=== PATIENT | male | born 1955 | race Caucasian/White ===

== ENCOUNTER → 2016-05-09 | Outpatient (CLI) | payer OTHER ==
[~2016-05-09] MED LIST: CIPR-280 PO; HYOS0.124 SL; LOPE-150 PO; ONDA-55 PO; SIME125C PO
== END ==
LOC: IMA 09:08
PROVIDERS: ATTEND Family Medicine
DX: M17.12 Unilateral primary osteoarthritis, left knee (principal)

== ENCOUNTER → 2016-07-19 | Outpatient (CLI) | payer OTHER | LOC: IMA.MDS 12:16 | PROVIDERS: ATTEND Family Medicine | DX: M17.0 Bilateral primary osteoarthritis of knee (principal) ==

== ENCOUNTER 2017-10-17 09:28 | Observation (INO) ==
[2017-10-17] MEDS ORDERED: SALINE FLUSH 10ml SYRINGE IVF PRN (10:09)
--- NOTE | 2017-10-17 10:22 | CT Scan Report ---
Indication: fall, mental status change PROCEDURE: CT head/brain wo con: Encounter: Initial Comparison: None Technique: Axial CT images through the head were performed without contrast. Iterative Reconstruction dose reducing technique was utilized. FINDINGS: The ventricles are of normal size, shape, and configuration for the patient's age. There is no evidence of acute intracranial hemorrhage, midline displacement, or mass effect. The CT attenuation of the brain parenchyma is normal within the cerebellum, brain stem, and cerebral hemispheres. The tympanic cavities and mastoid air cells are free of appreciable disease. There are no definite fractures of the skull base, calvarium, or visualized portion of the midface. IMPRESSION: No CT evidence of acute traumatic intracranial injury. .
--- NOTE | 2017-10-17 11:15 | XRay Report ---
INDICATION: ms change PROCEDURE: CHEST 2-VIEWS UPRIGHT (PA & LAT) Encounter: Initial COMPARISON: None FINDINGS: The lungs are clear without evidence of focal abnormal airspace opacity. There is no pleural effusion or pneumothorax. The heart size, mediastinal contours and pulmonary vascularity are within normal limits. There is no significant skeletal abnormality. IMPRESSION: No acute cardiopulmonary disease. .
[2017-10-17 12:40] VITALS: BMI 19.7
--- NOTE | 2017-10-17 13:08 | History & Physical Report ---
History of Present Illness Date: 10/17/17 HPI: Antonino Falcon is a 62 y/o male who was brought to [facility] ED via EMS. Apparently Axel Fowler called PD, concerned about him. Reportedly they heard him groaning inside and after breaking down the door, found him face down on the floor. At that time , EMS was called. Upon arrival he was obtunded and was able to answer questions ever so briefly before closing his eyes again. A detailed letter describing instructions on what he wants done after finding his body. In addition, there were numerous empty [place] bottles (4 empty ones, with 5 bottles either half or fully filled yet) -- these were left over Rx for his , who reportedly a year ago. There were also full Rx bottles of oxycodone, cyclobenzaprine, and trazodone. CBC, CMP, UA were essentially unremarkable. CT head and CXR did not show any acute pathology. UDS was pos for opiates. The hospitalist service was contacted for admission. The patient was seen while still in the ED. He was somnolent but awakened with loud verbal stimulation. Communication was difficult - his words were slurred and extremely difficult to understand. When I asked about his head, he chuckled but I was unable to understand what he said. He denied taking any of his 's medications and denied wanting to take his life. He states that he's had "the crud", referring to cough and congestion. ROS was limited and otherwise unremarkable. Review of Systems ROS unobtainable: due to mental status Past Medical History Medical History: Medical History (Last Updated 10/17/17 @ 15:15 by Estephania Camargo APRN) Anxiety Atrial fibrillation Chronic sinusitis Depression HTN (hypertension) Hyperlipidemia Surgical History: Appendectomy Family History Updates: Per patient: positive for diabetes, possibly heart disease. Per [facility] Records: Mother, Father, & Brother - CAD, HTN, HTN, Hyperlipidemia Family History: As Above - Social History Smoking status: Current every day smoker Packs per day: 1.5 Substance use type: other (states that he used drugs a long time ago) Alcohol intake frequency: does not drink Household members: none (: 06/2015) Current occupation: [employer] Medications Home Medications Medication Instructions Recorded Confirmed Type Escitalopram Oxalate [Lexapro] 20 mg PO DAILY 10/17/17 10/17/17 History Lisinopril [Prinivil] 10 mg PO DAILY 10/17/17 10/17/17 History Allergies Allergy/AdvReac Type Severity Reaction Status Date / Time chlorpheniramine Allergy Unknown Verified 10/17/17 09:52 codeine Allergy Unknown Verified 10/17/17 09:52 phenylephrine Allergy Verified 10/17/17 09:52 Exam Vital Signs: Temperature 96.4 F L 10/17/17 09:35 Pulse Rate 60 10/17/17 12:46 Respiratory Rate 25 H 10/17/17 12:46 Blood Pressure 117/59 10/17/17 12:46 Pulse Oximetry 94 10/17/17 12:46 Height/Weight/BMI: Height 1.85 m Weight 67.9 kg Body Mass Index 19.7 - Constitutional Present: well nourished, well developed, thin - Routine HEENT Exam Head: Absent: atraumatic (abrasions to left frontal scalp) Eye: Present: PERRL. Absent: conjunctival icterus, scleral injection ENT: Present: mucous membranes dry - Routine Neck Exam Present: supple - Routine Respiratory Exam Present: CTA bilaterally - Routine Cardiovascular Exam Present: RRR, S1, S2, bradycardia (HR in the 50s while sleeping, increased to 70s when awake) - Routine Abdominal Exam Present: soft, normoactive bowel sounds, non distended, non tender - Routine Extremities Exam Present: no edema, pulses intact. Absent: calf tenderness Comments: Abrasion to left foot Healing abrasion to left knee - Routine Skin Exam Present: dry, warm Comments: face is flushed skin is very tanned - Routine Neurological Exam Present: alert, CN II-XII intact (grossly intact - no obvious gross deficits), hearing grossly intact. Absent: facial asymmetry, normal speech (slurred, difficult to understand) - Routine Psychiatric Exam Present: unable to assess Results - Labs CBC & Chem 7: 10/17/17 10:22 10/17/17 10:22 Microbiology Results: Microbiology 10/17/17 10:26 Peripheral/Iv Start Blood Culture - Preliminary Culture Initiated - Results Pending 10/17/17 10:22 Peripheral/Iv Start Blood Culture - Preliminary Culture Initiated - Results Pending 10/17/17 10:27 Urine, Voided (Cc/notcc) Urine Culture - Preliminary Culture Initiated - Results Pending Assessment and Plan (1) Suicidal ideation Current visit: Yes Status: Acute Assessment and Plan: Assessment Possible suicide attempt Scalp abrasion Tobacco dependency Based on office notes from Feb, 2016: Depression - previously Rx escitalopram Anxiety A-fib HTN - previously Rx lisinopril 20 mg/HCTZ 25 mg Hyperlipidemia (also was Rx hyoscyamine & ondansetron) Plan Patient was obtunded and a poor historian on admission. He denied PMH or surgeries: Review of office records countered his statement. Placed in the CCU for suicide precautions and close monitoring given that we do not know the content/dose of any ingested substance(s). IVF: LR @ 100 mL/hr. NPO until he can safely protect his airway. RT consulted for tobacco cessation. Dr. Spencer consulted. "Patient will require inpatient psychiatric stabilization once medically stable. Patient cannot leave AMA. If patient attempts to leave, please place court hold and contact psychiatrist hot iron worker." Case discussed with Dr. Conti & Dr. Castillo. I personally examined and assessed the patient. Agree with the above assessment and plan, with the addition of the following: Pt overdosed on opioids as an intentional overdose with suicidal intent. Currently hemodynamically stable. Awakens to command, mumbles in a way that's difficult to understand. Was oriented x 2 for me. Lungs clear. O2 sats normal on RA. Normal respiratory rate. No LE edema. Right pupil slightly more dilated that left, which is 1-2mm in size, also with left mild ptosis. Moves upper and lower extremities symmetrically and 5/5 in strength. Cont IVF, reg diet if passes bedside swallow. Narcan if decreasing respiratory rate, discussed with nurse to monitor closely. ?3rd nerve palsy. Await assessment when more coherent. No other focal deficits to point towards CVA. Gen Castillo MD. DVT Prophylaxis: SCD's Resuscitation Status: Full Code - Physician Narrative Narrative: Date: 10/17/17 Time: 1258 Hospital Course Summary Disclaimer: The visit summary below is not to be considered part of the above Progress Note. Hospital Course: 10/17/17 Patient was obtunded and a poor historian on admission. He denied PMH or surgeries: Review of office records countered his statement. Placed in the CCU for suicide precautions and close monitoring given that we do not know the content/dose of any ingested substance(s). IVF: LR @ 100 mL/hr. NPO until he can safely protect his airway. RT consulted for tobacco cessation. Dr. Spencer consulted. "Patient will require inpatient psychiatric stabilization once medically stable. Patient cannot leave AMA. If patient attempts to leave, please place court hold and contact psychiatrist hot iron worker."
[2017-10-17] MEDS ORDERED: SENNA + DOCUSATE TABLET PO PRN (13:13)
[2017-10-17] MEDS ORDERED: BISACODYL 10 MG SUPPOSITORY RECTALLY PRN (13:13)
[2017-10-17] MEDS ORDERED: ONDANSETRON 4 MG/2 ML INJECTION IVP PRN (13:13)
[2017-10-17] MEDS ORDERED: NICOTINE 21 MG PATCH TD PRN (13:13)
[2017-10-17] MEDS ORDERED: Bisacodyl EC TAB 5 MG TABLET PO PRN (13:13)
[2017-10-17] MEDS: LR 1,000 ML IV SCH ×2 (13:53→23:34)
--- NOTE | 2017-10-17 14:54 | Neuropsychiatric Consult ---
[facility] Date: 10/18/17 Requesting Physician: Estephania Camargo Reason for Consultation: Safety assessment Start Time: 18:00 Stop Time: 18:40 History of Present Illness: Patient is a 62-year-old , male who was brought to [facility] ED by EMS on 10/17/17. Per primary team: "Apparently Bryan called PD, concerned about him. Reportedly they heard him groaning inside and after breaking down the door, found him face down on the floor. At that time, EMS was called. Upon arrival he was obtunded and was able to answer questions ever so briefly before closing his eyes again. A detailed letter describing instructions on what he wants done after finding his body. In addition, there were numerous empty [place] bottles (4 empty ones, with 5 bottles either half or fully filled yet) -- these were left over Rx for his , who reportedly a year ago. There were also full Rx bottles of oxycodone, cyclobenzaprine, and trazodone. CBC, CMP, UA were essentially unremarkable. CT head and CXR did not show any acute pathology. UDS was pos for opiates." On interview, patient is arousable but stuporous and confused. He greets me warmly and shakes my hand, but is oriented to self only. He mumbles his responses and is quite difficult to understand. His answers are mostly illogical given the conversation. He is hyperexcitable throughout the conversation and attempts to get out of his hospital bed, with excessive excitement and pointing about a pine tree out the hospital window. He has since minimized suicide attempt despite the letter described above. [facility] Patient Stated Medical History Dental Problems Yes Cardiac Arrhythmia Yes: Hx of afib Hypertension Yes Other Cardiology Yes: hyper lipidemia Depression Yes Medical History Updates: Denies Surgical History: Denies Family History Updates: Positive for diabetes, possibly heart disease. - Social History Smoking status: Current every day smoker Packs per day: 1.5 Substance use type: other (states that he used drugs a long time ago) Alcohol intake frequency: does not drink Social history: I am not able to obtain further reliable social history from patient at this time. Review of Systems ROS unobtainable: due to mental status Mental Status Exam Vitals: Last Vital Signs Temp 96.4 F L 10/17/17 09:35 Pulse 60 10/17/17 12:46 Resp 25 H 10/17/17 12:46 BP 117/59 10/17/17 12:46 Pulse Ox 94 10/17/17 12:46 Height: 1.85 m Weight: 67.9 kg - Mental Status Exam Muscle Strength/Tone: Weak Dressing: Other (Hospital gown) Grooming: Disheveled Attitude: Uncooperative (due to confusion) Motor Activity: Hyperactive Eye Contact: Fair Speech: Normal Volume: Normal Rhythm: Slurred, Mumbled Sensory: Stupor, Confused Orientation: Disoriented to time, Disoriented to place, Disoriented to situation , Oriented to person Mood: Neutral (has bright affect upon approach, but appears delirious) Rate of Thoughts: Delayed Thought Organization: Confused Associations: Illogical Abstract Reasoning: Impaired, concrete Thought Content: Other (Difficult to assess due to suspected delirium) Perception/Psychotic: Other (May be responding to internal stimuli, not clear) Language: Naming Impaired Fund of Knowledge: Poor fund of knowledge Memory: Poor-recent Suicidal Ideation: Other (s/p suicide attempt by overdose, suicide letter found at scene) Homicidal Ideation: None Insight: Impaired Judgement: Impaired Impulse Control: Poor - Laboratory Result Diagrams: 10/17/17 10:22 10/18/17 04:32 Laboratory Results - last 24 hr 10/17/17 10/17/17 10/17/17 10:20 10:20 10:22 WBC 7.7 RBC 5.01 Hgb 14.7 Hct 44.1 MCV 88.0 MCH 29.3 MCHC 33.3 RDW Std Deviation 43.6 Plt Count 193 MPV 8.8 L Immature Gran % (Auto) Not performed Neut % (Auto) Not performed Lymph % (Auto) Not performed Brooke % (Auto) Not performed Eos % (Auto) Not performed Baso % (Auto) Not performed Neut # (Auto) Not performed Lymph # (Auto) Not performed Brooke # (Auto) Not performed Eos # (Auto) Not performed Baso # (Auto) Not performed Abs Immat Gran (auto) Not performed Neutrophils % (Manual) 81.0 H Band Neutrophils % 3.0 Lymphocytes % (Manual) 12.0 L Monocytes % (Manual) 4.0 Neutrophils # (Manual) 6.2 Band Neutrophils # 0.2 Lymphocytes # (Manual) 0.9 L Monocytes # (Manual) 0.3 RBC Morph Comment Normal Turbidity Sodium Potassium Chloride Carbon Dioxide Anion Gap BUN Creatinine Estimated Creat Clear GFR Calculation BUN/Creatinine Ratio Glucose Calculated Osmolality Calcium Total Bilirubin Icterus Index AST ALT Alkaline Phosphatase Ammonia Total Creatine Kinase Troponin I Total Protein Albumin Globulin Albumin/Globulin Ratio TSH Specimen Hemolysis Ur Collection Type Urine Color Urine Clarity Urine pH Ur Specific Bryan Urine Protein Urine Glucose (UA) Urine Ketones Urine Occult Blood Urine Nitrate Urine Bilirubin Urine Urobilinogen Ur Leukocyte Esterase Urinalysis Comment Salicylates Urine Opiates Screen Positive Ur Oxycodone Screen Negative Urine Methadone Screen Negative Ur Propoxyphene Screen Negative Acetaminophen Ur Barbiturates Screen Negative U Tricyclic Antidepress Negative Ur Phencyclidine Scrn Negative Ur Amphetamines Screen Negative U Methamphetamines Scrn Negative U Benzodiazepines Scrn Negative Urine Cocaine Screen Negative U Cannabinoids Screen Negative Ur Drug Screen Confirm Sent out Alcohol, Quantitative 10/17/17 10/17/17 10:22 10:27 WBC RBC Hgb Hct MCV MCH MCHC RDW Std Deviation Plt Count MPV Immature Gran % (Auto) Neut % (Auto) Lymph % (Auto) Brooke % (Auto) Eos % (Auto) Baso % (Auto) Neut # (Auto) Lymph # (Auto) Brooke # (Auto) Eos # (Auto) Baso # (Auto) Abs Immat Gran (auto) Neutrophils % (Manual) Band Neutrophils % Lymphocytes % (Manual) Monocytes % (Manual) Neutrophils # (Manual) Band Neutrophils # Lymphocytes # (Manual) Monocytes # (Manual) RBC Morph Comment Turbidity < 20 Sodium 143 Potassium 4.4 Chloride 105 Carbon Dioxide 26 Anion Gap 12 BUN 22.0 H Creatinine 0.8 Estimated Creat Clear 80 GFR Calculation 98 BUN/Creatinine Ratio 28 H Glucose 115 H Calculated Osmolality 279 Calcium 9.0 Total Bilirubin 0.60 Icterus Index < 2 AST 27 ALT 27 Alkaline Phosphatase 68 Ammonia < 9 L Total Creatine Kinase 148 Troponin I < 0.012 Total Protein 7.4 Albumin 4.4 Globulin 3.0 Albumin/Globulin Ratio 1.5 TSH 1.47 Specimen Hemolysis < 15 Ur Collection Type Urine, void-cc/notcc Urine Color Yellow Urine Clarity Clear Urine pH 5.0 Ur Specific Bryan >=1.030 H Urine Protein Negative Urine Glucose (UA) Negative Urine Ketones Negative Urine Occult Blood Negative Urine Nitrate Negative Urine Bilirubin Negative Urine Urobilinogen 0.2 Ur Leukocyte Esterase Negative Urinalysis Comment Microscopic not ind. Salicylates < 1.0 L Urine Opiates Screen Ur Oxycodone Screen Urine Methadone Screen Ur Propoxyphene Screen Acetaminophen 15 Ur Barbiturates Screen U Tricyclic Antidepress Ur Phencyclidine Scrn Ur Amphetamines Screen U Methamphetamines Scrn U Benzodiazepines Scrn Urine Cocaine Screen U Cannabinoids Screen Ur Drug Screen Confirm Alcohol, Quantitative <10 Assessment and Plan (1) Suicide attempt by multiple drug overdose Current visit: Yes Status: Acute (2) Delirium, drug-induced Problem details: Acute, hyperactive Current visit: Yes Status: Acute Patient will require inpatient psychiatric stabilization once delirium resolves and he is medically stable. He may be a candidate for [facility] if he has insurance. If patient is uninsured or involuntary, would require a screen from [facility]. Patient cannot leave AMA. If patient attempts to leave, please place court hold and contact psychiatrist radio station manager.
[2017-10-17] MEDS ORDERED: NALOXONE 2 MG/2 ML INJECTION PFS IVP PRN (18:56)
[2017-10-18] MEDS ORDERED: NICOTINE PATCH REMOVAL TD SCH (09:00)
--- NOTE | 2017-10-18 09:45 | Progress Note ---
- Date 10/18/17 Subjective: Pt feeling well this am, conversant. Mental status has gradually normalized overnight, now noting no suicidal or homicidal ideations. Had 1 episode this morning where he thought he saw his cellphone on the bed which wasn't there. No N/V/F/C/CP/SOB/abd pain. Objective Vital signs: Temperature 98.3 F 10/18/17 08:00 Pulse Rate 67 10/18/17 08:00 Respiratory Rate 28 H 10/18/17 08:00 Blood Pressure 141/79 H 10/18/17 08:00 Pulse Oximetry 94 10/18/17 08:00 Rhythm: Normal Sinus Rhythm Height/Weight/BMI: Height 6 ft 1 in Weight 67.9 kg Body Mass Index 19.7 - Constitutional Present: no acute distress, well developed - Routine HEENT Exam Head: Present: normocephalic, atraumatic Eye: Present: EOMI. Absent: PERRL (Pupils reactive, right pupil slightly larger than left which was present on admission. EOMI. No ptosis. ) ENT: Present: mucous membranes moist, oropharynx clear, external ear normal - Routine Respiratory Exam Present: CTA bilaterally. Absent: wheezes, crackles - Routine Cardiovascular Exam Present: RRR. Absent: murmur, gallop, rubs - Routine Abdominal Exam Present: soft, non distended, non tender. Absent: organomegaly - Routine Extremities Exam Present: full ROM, normal capillary refill. Absent: cyanosis, edema - Routine Skin Exam Present: intact, dry. Absent: jaundice, rash - Routine Neurological Exam Present: alert, oriented X3, CN II-XII intact, moving all extremities (5/5 strength). Absent: altered mental status - Routine Psychiatric Exam Present: cooperative. Absent: suicidal ideation, homicidal ideation, good judgment, depressed, anxious, paranoid, manic Results - Labs CBC & Chem 7: 10/17/17 10:22 10/18/17 04:32 Microbiology Results: Microbiology 10/17/17 10:26 Peripheral/Iv Start Blood Culture - Preliminary Culture Initiated - Results Pending 10/17/17 10:22 Peripheral/Iv Start Blood Culture - Preliminary Culture Initiated - Results Pending 10/17/17 10:27 Urine, Voided (Cc/notcc) Urine Culture - Preliminary Culture Initiated - Results Pending Assessment and Plan (1) Suicidal ideation Current visit: Yes Status: Acute Assessment and Plan: Assessment Suicide attempt Scalp abrasion Tobacco dependency Based on office notes from Feb, 2016: Depression - previously Rx escitalopram Anxiety A-fib HTN - previously Rx lisinopril 20 mg/HCTZ 25 mg Hyperlipidemia (also was Rx hyoscyamine & ondansetron) Plan Intentional overdose on opioids: Mental status back to baseline, respiratory status normal. Psych consulted, recommended inpt psych. Remove deal cath. PT/OT to eval and treat. Medically stable for dismissal. Tobacco abuse: Cont nicotine patch. Pupil asymmetry: No other focal deficits. No ptosis to suggest 3rd nerve palsy. Likely chronic, anisocoria. FEN: Gen diet. Stop IVF. Proph: Lovenox. Dispo: Await placement in inpt psych. DVT Prophylaxis: SCD's Resuscitation Status: Full Code - Physician Narrative Narrative: Date: 10/18/17 Time: 0942 Hospital Course Summary Disclaimer: The visit summary below is not to be considered part of the above Progress Note. Hospital Course: 10/17/17 Patient was obtunded and a poor historian on admission. He denied PMH or surgeries: Review of office records countered his statement. Placed in the CCU for suicide precautions and close monitoring given that we do not know the content/dose of any ingested substance(s). IVF: LR @ 100 mL/hr. NPO until he can safely protect his airway. RT consulted for tobacco cessation. Dr. Spencer consulted. "Patient will require inpatient psychiatric stabilization once medically stable. Patient cannot leave AMA. If patient attempts to leave, please place court hold and contact psychiatrist clinical operations specialist."
[2017-10-18] MEDS: LR 1,000 ML IV SCH (09:47)
[2017-10-18 13:45] VITALS: BP 137/72; TEMP 98.5
--- NOTE | 2017-10-18 14:45 | Discharge Summary ---
Discharge Information Date of admission: 10/17/17 11:32 Attending Physician: Dagoberto Castillo MD Consults: 10/17/17 13:13 Case Management Consult [CONS] Routine Reason For Exam: Physician Consult [CONS] Routine Consulting Provider: Liudmila Spencer Reason For Exam: suicide attempt Ordering Provider has Notified [employer]istics Center Manager: No - Discharge Diagnosis (1) Suicidal ideation Status: Acute - Laboratory Labs: 10/17/17 10:22 10/18/17 04:32 - Microbiology Microbiology 10/17/17 10:27 Urine, Voided (Cc/notcc) Urine Culture - Preliminary No Growth After 1 Day 10/17/17 10:26 Peripheral/Iv Start Blood Culture - Preliminary No Growth After 1 Day 10/17/17 10:22 Peripheral/Iv Start Blood Culture - Preliminary No Growth After 1 Day History of Present Illness HPI: Antonino Falcon is a 62 y/o male who was brought to [facility] [place] ED via EMS. Apparently [employer] [employer] called PD, concerned about him. Reportedly they heard him groaning inside and after breaking down the door, found him face down on the floor. At that time , EMS was called. Upon arrival he was obtunded and was able to answer questions ever so briefly before closing his eyes again. A detailed letter describing instructions on what he wants done after finding his body. In addition, there were numerous empty [place] bottles (4 empty ones, with 5 bottles either half or fully filled yet) -- these were left over Rx for his , who reportedly a year ago. There were also full Rx bottles of oxycodone, cyclobenzaprine, and trazodone. CBC, CMP, UA were essentially unremarkable. CT head and CXR did not show any acute pathology. UDS was pos for opiates. The hospitalist service was contacted for admission. The patient was seen while still in the ED. He was somnolent but awakened with loud verbal stimulation. Communication was difficult - his words were slurred and extremely difficult to understand. When I asked about his head, he chuckled but I was unable to understand what he said. He denied taking any of his 's medications and denied wanting to take his life. He states that he's had "the crud", referring to cough and congestion. ROS was limited and otherwise unremarkable. Objective Vital signs: Temperature 98.5 F 10/18/17 12:00 Pulse Rate 68 10/18/17 13:30 Respiratory Rate 27 H 10/18/17 13:30 Blood Pressure 137/72 10/18/17 13:00 Pulse Oximetry 96 10/18/17 13:30 Rhythm: Normal Sinus Rhythm Height/Weight/BMI: Height 6 ft 1 in Weight 67.9 kg Body Mass Index 19.7 - Additional findings Additional findings: See exam from progress note from day. Hospital Course This is a general summary of the patient's hospital course. For more details refer to the complete medical record. Intentional overdose on opioids: IVF given. Narcan administered by EMS. Pt was very altered on admit. Gradually, his mental status retuned to baseline. Had respiratory status normal. Psych consulted, recommended inpt psych. Recommended inpt psych, which is where pt is being discharged to. Removed deal cath. PT/OT to eval and treat. Tobacco abuse: Treated with nicotine patch. Pupil asymmetry: No other focal deficits. No ptosis to suggest 3rd nerve palsy. Likely chronic, anisocoria. Hospital course: 10/17/17 Patient was obtunded and a poor historian on admission. He denied PMH or surgeries: Review of office records countered his statement. Placed in the CCU for suicide precautions and close monitoring given that we do not know the content/dose of any ingested substance(s). IVF: LR @ 100 mL/hr. NPO until he can safely protect his airway. RT consulted for tobacco cessation. Dr. Spencer consulted. "Patient will require inpatient psychiatric stabilization once medically stable. Patient cannot leave AMA. If patient attempts to leave, please place court hold and contact psychiatrist chief engineer production." Time spent with patient: discharge greater than 30 minutes External Problems Reviewed(CCD)?: Yes Discharge Plan - Discharge Disposition Disposition: 65 To Psych Hosp/Unit *Condition: Stable Reason For Visit (Visit label in EMR): Suicide attempt - Discharge Medications *Discharge Medications: No Action Lisinopril [Prinivil] 10 mg PO DAILY Escitalopram Oxalate [Lexapro] 20 mg PO DAILY - Discharge Packet/Instructions *Diet: Regular *Activity: As tolerated *Pain Management/Treatment: Tylenol PRN. *Wound Care: N/A. *Expected Signs/Symptoms: Should continue to progress. Ambulatory. *Notify Physician if: Any concerns. *During Business Hours Contact: PCP or doc at Psych facility *After Business Hours Contact: ER *Pending Lab/Results: No Pending Lab - Referrals/Follow Up *Referrals/Follow Up: Marbin Mcgowan II, MD [Physician] - - Patient Handouts - Dismissal Complete Discharge Instructions are:: Complete Physician Narrative - Narrative Attestation Narrative: Date: 10/18/17 Time: 1444
[2017-10-18 15:44] VITALS: RESP 20; O2SAT 95
[2017-10-18 16:31] VITALS: PULSE 62
[2017-10-19] MEDS ORDERED: ENOXAPARIN 40 MG/0.4 ML INJECTION SQ SCH (09:00)
== END 2017-10-18 15:58 ==
LOC: EDHOLD 09:28 → ED 09:28 → CCU 12:35
PROVIDERS: ADMIT Family Medicine; ATTEND Family Medicine